=== PATIENT | female | born 1985 | race Caucasian/White ===

== ENCOUNTER 2023-10-05 18:40 | Inpatient (IN) | payer OTHER ==
[2023-10-05 19:01] VITALS: BMI 21.1
[2023-10-05] MEDS ORDERED: NALOXONE HCL (KLOXXADO) 8 MG SPRAY NS PRN (19:47)
[2023-10-05] MEDS ORDERED: BENZOCAINE/MENTHOL (CHLORASEPTIC ) LOZENGE MM PRN (19:47)
[2023-10-05] MEDS ORDERED: ACETAMINOPHEN 325 MG TABLET (FP) PO PRN (19:47)
[2023-10-05] MEDS ORDERED: MAG HYDROX/AL HYDROX/SIMETH 30 ML UNIT-DOSE CUP PO PRN (19:47)
[2023-10-05] MEDS ORDERED: ONDANSETRON *ODT* 4 MG TABLET SL PRN (19:47)
[2023-10-05] MEDS ORDERED: IBUPROFEN 400 MG TABLET (FP) PO PRN (19:47)
[2023-10-05] MEDS ORDERED: BENZONATATE 200 MG CAPSULE PO PRN (19:47)
[2023-10-05] MEDS ORDERED: BISMUTH SUBSALICYLATE 524 MG/30 ML PO PRN (19:47)
[2023-10-05] MEDS ORDERED: MAGNESIUM HYDROX 2400MG/30ML ORAL SUSPENSION 30 ML CUP PO PRN (19:47)
[2023-10-05] MEDS ORDERED: DICYCLOMINE HCL 10 MG CAPSULE PO PRN (19:47)
[2023-10-05] MEDS ORDERED: NALOXONE HCL 0.4 MG/ML VIAL IM PRN (19:47)
[2023-10-05] MEDS ORDERED: LOPERAMIDE HCL 2 MG CAPSULE PO PRN (19:47)
[2023-10-05] MEDS ORDERED: guaiFENesin 600 MG TABLET.ER (FP) PO PRN (19:47)
[2023-10-05] MEDS ORDERED: diazePAM 5 MG TABLET ONE (20:06)
[2023-10-05] MEDS: diazePAM 5 MG TABLET PO PRN (20:10)
[2023-10-05] MEDS ORDERED: INSULIN (LEVEMIR) 100 UNITS/ML UNITS SQ SCH (22:00)
[2023-10-05] MEDS: MELATONIN 5 MG TABLETS PO SCH (22:53)
[2023-10-05] MEDS: THIAMINE HCL 100 MG TABLET (FP) PO SCH (22:53)
[2023-10-05] MEDS: diazePAM 5 MG TABLET PO SCH (22:54)
[2023-10-05] MEDS: INSULIN (LEVEMIR) 100 UNITS/ML UNITS SQ SCH (22:55)
[2023-10-06] MEDS: ALBUTEROL SO4 HFA INHALER IH PRN (05:39)
[2023-10-06] MEDS: INSULIN ASPART SLIDING SCALE (NOVOLOG) 1 VIAL SQ SCH (06:07)
[2023-10-06] MEDS: NYSTATIN POWDER 100,000 UNITS/GM - 15 GM TOPICAL POWDER TP SCH (10:39)
[2023-10-06] MEDS: PRENATAL VITAMINS W/ FOLIC ACID TABLET (FP) PO SCH (10:39)
[2023-10-06] MEDS: METHOCARBAMOL 500 MG TABLET PO PRN (10:44)
[2023-10-06] MEDS: IBUPROFEN 600 MG TABLET (FP) PO PRN (13:24)
[2023-10-06] MEDS: hydrOXYzine PAMOATE 25 MG CAPSULE (FP) PO PRN (13:24)
[2023-10-06 14:40] LABS: HEMATOCRIT 30.3 % (32.4-45.2); HEMOGLOBIN 10.1 GM/dL (10.7-15.3); MCH 34.7 pg (25.7-33.7); MCHC 33.2 g/dl (32.0-36.0); MEAN CELL VOLUME 104.5 fl (80-96); MEAN PLT VOLUME 8.5 fl (7.5-11.1); PLATELET COUNT 127 10^3/uL (134-434); WHITE BLOOD COUNT 6.3 K/mm3 (4.0-10.0)
[2023-10-06 15:06] LABS: POTASSIUM 3.8 mmol/L (3.5-5.1)
[2023-10-06 15:16] LABS: CREATININE 0.7 mg/dL (0.55-1.3)
[2023-10-06 15:19] LABS: ALBUMIN 3.2 g/dl (3.4-5.0)
[2023-10-06 15:20] LABS: BLOOD UREA NITROGEN 8.5 mg/dL (7-18); CALCIUM 8.3 mg/dL (8.5-10.1)
[2023-10-06 15:23] LABS: BILIRUBIN,TOTAL 0.7 mg/dL (0.2-1)
[2023-10-06] MEDS ORDERED: INSULIN (NOVOLOG) ASPART 100 UNITS/ML 10ML VIAL ONE (17:06)
[2023-10-07] MEDS: diazePAM 5 MG TABLET PO SCH (05:33)
[2023-10-07] MEDS: NICOTINE 14 MG/24 HOURS TOPICAL PATCH TD PRN (14:29)
[2023-10-07] MEDS ORDERED: INSULIN (NOVOLOG) ASPART 100 UNITS/ML 10ML VIAL ONE (17:09)
[2023-10-07] MEDS: POLYETHYLENE GLYCOL (HEALTHYLAX) 3350 17 GM PACKET PO PRN (19:14)
[2023-10-07] MEDS: levETIRAcetam 500 MG TABLET (FP) PO SCH (22:14)
[2023-10-08] MEDS: diazePAM 5 MG TABLET PO SCH (05:40)
[2023-10-08 13:11] LABS: IRON SERUM 78 ug/dL (50-175); SGOT/AST 128 U/L (15-37)
[2023-10-08 13:12] LABS: TOTAL IRON BINDING CAPACITY 294 ug/dL (250-450)
[2023-10-08] MEDS ORDERED: INSULIN (NOVOLOG) ASPART 100 UNITS/ML 10ML VIAL ONE (17:12)
[2023-10-09] MEDS: diazePAM 5 MG TABLET PO ONE (05:53)
[2023-10-09 10:06] VITALS: BP 144/93; PULSE 112; RESP 17; TEMP 97.7
== END 2023-10-09 09:53 | disposition home or self-care (01) | DRG 897 ==
LOC: YASAS 18:40 → Y6N 20:29
PROVIDERS: ADMIT Allergy & Immunology; ATTEND Surgery
PROC: HZ2ZZZZ Detoxification Services for Substance Abuse Treatment (ICD-10-PCS; principal; 2023-10-05)
DX: F10.230 Alcohol dependence with withdrawal, uncomplicated (principal); F17.290 Nicotine dependence, other tobacco product, uncomplicated; F10.280 Alcohol dependence with alcohol-induced anxiety disorder; F10.282 Alcohol dependence with alcohol-induced sleep disorder; F41.9 Anxiety disorder, unspecified; F41.0 Panic disorder [episodic paroxysmal anxiety]; G62.9 Polyneuropathy, unspecified; E10.9 Type 1 diabetes mellitus without complications; Z79.4 Long term (current) use of insulin; M54.50 Low back pain, unspecified; G89.29 Other chronic pain; R74.01 Elevation of levels of liver transaminase levels; R26.89 Other abnormalities of gait and mobility; H54.62 Unqualified visual loss, left eye, normal vision right eye; I69.898 Other sequelae of other cerebrovascular disease; Z99.89 Dependence on other enabling machines and devices; Z87.19 Personal history of other diseases of the digestive system; Z62.810 Personal history of physical and sexual abuse in childhood; Z91.410 Personal history of adult physical and sexual abuse; Z63.8 Other specified problems related to primary support group; Z63.0 Problems in relationship with spouse or partner
CPT/HCPCS: 36415; 80053; 80307; 81025; 82607; 82728; 82746; 82962; 83036; 83540; 83550; 84450; 85027; 86780; 93005; 93010